=== PATIENT | female | born 1960 | race Caucasian/White ===

== ENCOUNTER 2016-12-05 23:08 | Emergency (ER) | payer BC ==
[~2016-12-05] VITALS: Ht 162.5 cm; Wt 122.5 kg
[2016-12-05] MEDS ORDERED: ALOGLIPTIN-MET1 EAC1 PO (23:18)
[2016-12-05] MEDS ORDERED: SIMVASTATIN40 MG PO (23:18)
[2016-12-05] MEDS ORDERED: ESCITALOPRAM OX20 MG PO (23:18)
[2016-12-05] MEDS ORDERED: VALSARTAN160 MG PO (23:18)
[2016-12-06] MEDS ORDERED: CYCLOBENZAPRINE10 MG PO (00:16)
== END 2016-12-06 00:32 | disposition home or self-care (01) ==
LOC: ED 23:08
DX: S33.5XXA Sprain of ligaments of lumbar spine, initial encounter (principal); Z88.8 Allergy status to other drugs, medicaments and biological substances; Z79.899 Other long term (current) drug therapy; X58.XXXA Exposure to other specified factors, initial encounter; Y93.9 Activity, unspecified; Y92.9 Unspecified place or not applicable; Y99.9 Unspecified external cause status

== ENCOUNTER → 2019-03-29 | Day surgery (SDC) | payer BC ==
[~2019-03-29] VITALS: Ht 162.5 cm; Wt 108.9 kg
[~2019-03-29] MED LIST: ALOGLIPTIN-MET1 EAC1 PO; CYCLOBENZAPRINE10 MG PO; ESCITALOPRAM OX20 MG PO; SIMVASTATIN40 MG PO; VALSARTAN160 MG PO; XIGDUO XR 5 MG1 EAC1 PO
--- NOTE | ~2019-03-29 | O ---
[place], [place] OPERATIVE NOTE NAME: ARABELLA MCKEON UNIT #: [id number] ROOM: DOCTOR: WILNER CONNER MD BIRTHDATE: [birth year] DOS: 03/29/2019 GASTROENDOSCOPIC REPORT HISTORY OF PRESENT ILLNESS: This is a 58-year-old patient who has presented with chief complaint of rectal bleed and undergoing examination for this purpose. PAST MEDICAL HISTORY: Blood in the stool. The patient had a course of diarrhea, which has resolved. Hypertension and hypercholesterolemia. ALLERGIES: LISINOPRIL. FAMILY HISTORY: Noncontributory. PAST SURGICAL HISTORY: Septoplasty. PROCEDURE: Today's procedure part of investigation is colonoscopy. PREMEDICATION: Propofol. SCOPE: Olympus forward-viewing colonoscope 10L video. REPORT: After putting the patient in left lateral position, application of lubricant to rectal pouch and digital examination, scope was introduced. Thereafter, under direct visualization, advanced through the length of colon without difficulty. Colon mucosa and vascularity carefully examined. Base of the cecum explored, appendiceal orifice identified, ileocecal valve was defined. No acute pathology was identified. Scope was gradually withdrawn from ascending, transverse, and descending colon. The patient extubated, tolerated the procedure well. IMPRESSION: Normal colonoscopic examination. Specifically, retroflexion of the scope has been done. There was no internal or external hemorrhoids or acute pathology of concern in the colon. Impression, normal colonoscopic examination otherwise. PLAN: High fiber diet. ACTIVITY: Ad julia. FOLLOWUP: As outpatient. Follow-up colonoscopy in 10 years unless there are symptoms in which case follow-up should be as needed. Thank you very much indeed. [place], [place] OPERATIVE NOTE NAME: ARABELLA MCKEON UNIT #: [id number] ROOM: DOCTOR: WILNER CONNER MD BIRTHDATE: [birth year] WILNER CONNER MD CM:OPRECORD:OPERATIVE NOTE [id number] WILNER CONNER MD 04/03/19 1059 interface
[2019-03-29 07:00] VITALS: BP 117/57
[2019-03-29 08:10] VITALS: BP 119/59
[2019-03-29 08:25] VITALS: BP 129/60
[2019-03-29 08:40] VITALS: BP 137/67
== END | disposition home or self-care (01) ==
LOC: SDC 03-22 10:15
DX: K92.1 Melena (principal); I10 Essential (primary) hypertension; E78.00 Pure hypercholesterolemia, unspecified; E11.9 Type 2 diabetes mellitus without complications; F41.9 Anxiety disorder, unspecified; F32.9 Major depressive disorder, single episode, unspecified; J45.909 Unspecified asthma, uncomplicated; E78.5 Hyperlipidemia, unspecified; Z79.899 Other long term (current) drug therapy; Z88.8 Allergy status to other drugs, medicaments and biological substances; Z98.890 Other specified postprocedural states